=== PATIENT | female | born 1975 | race American Indian/Alaskan Native ===

== ENCOUNTER 2020-11-27 08:36 | Day surgery (SDC) | payer BC ==
[~2020-11-27 08:36] MED LIST: LACTATED RINGERS 1,000 ML IV SCH; MIDAZOLAM 2 MG/2 ML INJ IV NR; ceFAZolin/Water 2 GM/20 ML 2 GM/20 ML SYRINGE IV NR
[2020-11-27] MEDS ORDERED: LIDOCAINE MPF (2%) 20 MG/1 ML VIAL 5 ML ONE (09:18)
[2020-11-27] MEDS ORDERED: fentaNYL 100 MCG/2 ML INJ ONE (09:18)
[2020-11-27] MEDS ORDERED: propofoL 200 MG/20 ML VIAL IV ONE (09:19)
[2020-11-27] MEDS ORDERED: ONDANSETRON 4 MG/2 ML INJ IV PRN (09:27)
[2020-11-27] MEDS ORDERED: HYDROcodone/ACETAMINOPHEN 5-325 MG TAB PO PRN (09:27)
--- NOTE | 2020-11-27 09:27 | Anesthesia Day of Surgery ---
Anesthesia Day of Surgery - Day of Surgery Patient Examined: Yes Patient H&P Reviewed: Yes Patient is NPO: Yes
--- NOTE | 2020-11-27 09:27 | Anesthesia Consultation ---
Anesthesia Consult and Med Hx Date of service: 11/27/20 - Airway Anesthetic Teeth Evaluation: Good, Bridges ROM Head & Neck: Adequate Mental/Hyoid Distance: Adequate Mallampati Class: Class III Intubation Access Assessment: Possibly Difficult - Pre-Operative Health Status ASA Pre-Surgery Classification: ASA3 Proposed Anesthetic Plan: General - Pulmonary Hx Smoking: No Hx Respiratory Symptoms: No - Cardiovascular System Hx Hypertension: No Hx Heart Attack/AMI: No - Central Nervous System CVA: No - Endocrine Hx Renal Disease: No (renal stones) Hx Liver Disease: No Hx Insulin Dependent Diabetes: No Hx Non-Insulin Dependent Diabetes: No Hx Thyroid Disease: No - Hematic Hx Anemia: Yes - Other Systems Hx Cancer: Yes (ovarian cancer) Hx Obesity: Yes (BMI 33) - Additional Comments Anesthesia Medical History Comments: No hx anesthetic complications.
[2020-11-27] MEDS ORDERED: ONDANSETRON 4 MG/2 ML INJ ONE (09:55)
[2020-11-27] MEDS ORDERED: dexAMETHasone 20 MG/5 ML VIAL ONE (09:55)
[2020-11-27 10:22] LABS: Hematocrit 38.5 % (30.3-42.9); Hemoglobin 12.8 gm/dl (10.1-14.3); Mean Corpuscular HGB Conc 33 % (30-34); Mean Corpuscular Volume 91 fl (79-97); Platelet Count 225 K/mm3 (140-440); Red Blood Count 4.23 M/mm3 (3.65-5.03); Red Cell Distribution Width 14.4 % (13.2-15.2)
[2020-11-27 10:37] LABS: BUN/Creatinine Ratio 17; Blood Urea Nitrogen 10 mg/dL (7-17); Hemolysis Index 4
[2020-11-27] MEDS ORDERED: ePHEDrine SULFATE 50 MG/1 ML INJ ONE (10:38)
--- NOTE | 2020-11-27 10:55 | Short Stay Summary ---
Short Stay Documentation Date of service: 11/27/20 - History H&P: obtained from office - Allergies and Medications Current Medications: Allergies iodine Adverse Reaction (Severe, Verified 11/24/20 16:53) Anaphylaxis shellfish derived Adverse Reaction (Severe, Verified 11/24/20 16:53) Anaphylaxis PHENERGAN- LOW BP & BODY SPASMS Adverse Reaction (Severe, Uncoded 11/24/20 16:51) Unknown Home Medications Medication Instructions Recorded Confirmed Last Taken Type B12 Active 1 syr IM QMONTH 11/24/20 11/24/20 Unknown History Active Medications Hydrocodone Bitart/Acetaminophen (Hydrocodone/Acetaminophen 5-325 Mg Tab) 2 each PO ONCE PRN PRN Reason: Pain, Moderate (4-6) Lactated Ringer's (Lactated Ringers) 1,000 mls @ 100 mls/hr IV DIRECT OSIRIS Stop: 11/27/20 23:59 Last Admin: 11/27/20 09:35 Dose: 100 mls/hr Documented by: Cefazolin Sodium (Ancef/Sterile Water 2 Gm/20 Ml) 2 gm in 20 mls @ 80 mls/hr IV PREOP NR; Protocol Stop: 11/27/20 21:00 Midazolam HCl (Midazolam 2 Mg/2 Ml Inj) 2 mg IV PREOP NR Stop: 11/27/20 21:00 Last Admin: 11/27/20 10:02 Dose: 2 mg Documented by: Ondansetron HCl (Ondansetron 4 Mg/2 Ml Inj) 4 mg IV ONCE PRN PRN Reason: Nausea And Vomiting - Brief post op/procedure progress note Date of procedure: 11/27/20 Pre-op diagnosis: left renal stone Post-op diagnosis: same Procedure: left ESWL Anesthesia: GETA Surgeon: GIULIANA VASQUES Condition: stable - Hospital course Hospital course: flomax, ultram,norco,post op info on chart - Disposition Condition at discharge: Stable Disposition: DC-01 TO HOME OR SELFCARE Short Stay Discharge Plan Follow up with: MAGALYS MORALES [Other] - 7 Days
--- NOTE | 2020-11-27 11:07 | Operative Report ---
PREOPERATIVE DIAGNOSIS: Left renal stone (12 mm). POSTOPERATIVE DIAGNOSIS: Left renal stone (12 mm). PROCEDURE: Extracorporal shock wave lithotripsy, staged procedure. SURGEON: Pancho Panda MD ANESTHESIA: General. ESTIMATED BLOOD LOSS: Minimal. FLUIDS: Crystalloid. COMPLICATIONS: No complications. INDICATIONS: This 44-year-old female was seen in a [place] office for flank pain. She had undergone CT of abdomen and pelvis and was found to have a 12 mm left renal stone as well as a 5 mm stone. She had a history of a gastric bypass. She has had lithotripsy x 2 in [place]. She presents now for surgical intervention. DESCRIPTION OF PROCEDURE: The patient was taken to the operative suite, placed in a supine position. After adequate general anesthesia, her stone was localized in 2 planes using fluoroscopy. Extracorporal shock wave lithotripsy was administered with a maximum kV of 7 and 2500 shocks, 5-minute renal pause after 200 shocks was performed. There was some fragmentation of her stone. It is unclear if it is completely resolved. The patient tolerated the procedure well. She was extubated and taken to recovery room. She will go home on Ultram, [place], and Flomax. JOB# [id number] C/NTS
[2020-11-27 12:19] VITALS: BP 144/82
--- NOTE | 2020-11-27 12:49 | Post Anesthesia Evaluation ---
- Post Anesthesia Evaluation Patient Participated: Yes Airway Patent: Yes Stable Respiratory Function: Yes Nausea/Vomiting: No Temp > 96.8F: Yes Pain Manageable: Yes Adequeate Hydration: Yes Anesthesia Complications: No
== END 2020-11-27 12:10 | disposition home or self-care (01) ==
LOC: OR 08:36
PROVIDERS: ATTEND Urology
DX: N20.0 Calculus of kidney (principal); G43.909 Migraine, unspecified, not intractable, without status migrainosus; E66.9 Obesity, unspecified; Z98.890 Other specified postprocedural states; Z79.899 Other long term (current) drug therapy; Z91.041 Radiographic dye allergy status; Z90.13 Acquired absence of bilateral breasts and nipples; Z90.710 Acquired absence of both cervix and uterus; Z72.89 Other problems related to lifestyle; Z85.43 Personal history of malignant neoplasm of ovary; Z90.721 Acquired absence of ovaries, unilateral
CPT/HCPCS: 36415; 50590; 80048; 85027; J0690; J1100; J2250; J2405; J2704; J3010; J7120; U0003